=== PATIENT | female | born 1995 | race Caucasian/White ===

== ENCOUNTER 2020-06-01 07:54 | Inpatient (IN) | payer OTHER ==
[~2020-06-01] VITALS: Ht 160 cm; Wt 78.9 kg
[2020-06-01 08:36] LABS: HCT 32.6 % (37.0-47.0); HGB 10.8 g/dl (12.5-16.0); MCH 26.3 pg (25.0-31.0); MCHC 33.1 g/dL (32.0-36.0); MCV 79.5 fL (78.0-100.0); MPV 11.4 fL (6.0-9.5); RBC 4.1 M/uL (4.20-5.40); RDW 16.2 % (11.5-14.0); WBC 7.8 K/uL (4.0-10.5)
[2020-06-01 08:37] LABS: BILIRUBIN NEGATIVE (NEGATIVE); BLOOD 2+ Ery/uL (NEGATIVE); CLARITY CLEAR (CLEAR); COLOR YELLOW (YELLOW); GLUCOSE (U) NORMAL (NORMAL); LEUKOCYTES TRACE Leu/uL (NEGATIVE); NITRITE NEGATIVE (NEGATIVE); PROTEIN NEGATIVE (NEGATIVE); UROBILINOGEN 0.2 mg/dL (0.2-1.0)
[2020-06-01 08:51] LABS: BACTERIA 1+; URINARY WBC RARE
[2020-06-02 05:27] LABS: HCT 27.5 % (37.0-47.0); HGB 8.8 g/dl (12.5-16.0); MCV 81.4 fL (78.0-100.0); MPV 11.3 fL (6.0-9.5); RBC 3.38 M/uL (4.20-5.40); RDW 16.6 % (11.5-14.0); WBC 13.3 K/uL (4.0-10.5)
== END 2020-06-03 17:43 | disposition home or self-care (01) | DRG 787 ==
LOC: FOD 07:54 → FOB 07:54 → FOD 08:19 → FOB 06-03 17:43
PROVIDERS: ADMIT Obstetrics & Gynecology
PROC: 10D00Z1 Extraction of Products of Conception, Low, Open Approach (ICD-10-PCS; principal; 2020-06-01 19:00)
DX: O62.1 Secondary uterine inertia (principal); D62 Acute posthemorrhagic anemia; O48.0 Post-term pregnancy; Z37.0 Single live birth; Z3A.40 40 weeks gestation of pregnancy; O99.03 Anemia complicating the puerperium; O36.63X0 Maternal care for excessive fetal growth, third trimester, not applicable or unspecified; Z20.822 Contact with and (suspected) exposure to COVID-19; F41.9 Anxiety disorder, unspecified; F32.9 Major depressive disorder, single episode, unspecified
CPT/HCPCS: 36415; 81001; J0456; J0690; J1200; J1885; J2274; J2405; J2916; J7050; J7120; Q0162; U0002